=== PATIENT | male | born 1965 | race Caucasian/White ===

== ENCOUNTER 2017-03-11 15:00 | Outpatient (RCR) | payer OTHER | END 2017-06-09 | disposition home or self-care (01) | LOC: WSOH | DX: S63.501A Unspecified sprain of right wrist, initial encounter (principal); M54.5 Low back pain; W00.0XXA Fall on same level due to ice and snow, initial encounter; Y99.0 Civilian activity done for income or pay; Z88.5 Allergy status to narcotic agent; Z79.82 Long term (current) use of aspirin ==

== ENCOUNTER 2018-04-17 06:37 | Day surgery (SDC) | payer BC ==
[~2018-04-17] VITALS: Ht 188 cm; Wt 81.5 kg
[2018-04-17 06:59] VITALS: BP 114/80; PULSE 72; TEMP 97.5
[2018-04-17] MEDS ORDERED: MOTRIN 400400 MG/TAB PO (07:23)
[2018-04-17] MEDS ORDERED: ZOLOFT 100MG100 MG PO (07:24)
[2018-04-17] MEDS ORDERED: KLONOPIN 1MG1 MG PO (07:25)
[2018-04-17] MEDS ORDERED: MULTIPLE VITAMI1 CAP PO (07:26)
[2018-04-17] MEDS ORDERED: MASON NATURAL600 MG PO (07:26)
[2018-04-17] MEDS ORDERED: MELATONIN5 M1 PO (07:27)
[2018-04-17] MEDS ORDERED: BENADRYL25 M2 PO (07:28)
[2018-04-17 08:50] VITALS: BP 118/79; PULSE 56
--- NOTE | 2018-04-17 08:50 | NUR ---
Pt returns from endo procedure. Pt ambulates from cart to recliner with RN assist. Monitors on and alarms set. Call light within reach. Pt's in room. Report received from [facility] Moy. Pt requests ice water and muffin. Pt denies pain or nausea.
[2018-04-17 09:00] VITALS: BP 118/80; PULSE 56; TEMP 97.2
--- NOTE | 2018-04-17 09:00 | NUR ---
Pt taking food and drink well. No complications voiced.
[2018-04-17 09:15] VITALS: BP 114/89; PULSE 59
[2018-04-17 09:30] VITALS: BP 111/69; PULSE 57
--- NOTE | 2018-04-17 09:55 | NUR ---
Discharge instructions given to patient and . All questions answered to their satisfaction. Handed to them are discharge instructions, diagnosis information, and a discharge med sheet.
--- NOTE | 2018-04-17 09:58 | NUR ---
Pt transferred out of hospital via wheelchair and this RN to private vehicle driven by .
== END 2018-04-17 09:58 | disposition home or self-care (01) ==
LOC: SDCO 06:37
DX: Z12.11 Encounter for screening for malignant neoplasm of colon (principal); K64.0 First degree hemorrhoids
CPT/HCPCS: J2250; J3010; J7030

== ENCOUNTER → 2018-09-07 | Outpatient (CLI) | payer BC ==
[~2018-09-07] MED LIST: BENADRYL25 M2 PO; KLONOPIN 1MG1 MG PO; MASON NATURAL600 MG PO; MELATONIN5 M1 PO; MOTRIN 400400 MG/TAB PO; MULTIPLE VITAMI1 CAP PO; ZOLOFT 100MG100 MG PO
== END ==
LOC: COL.RAD 12:00
DX: M47.26 Other spondylosis with radiculopathy, lumbar region (principal)